=== PATIENT | male | born 1970 | race Caucasian/White ===

== ENCOUNTER → 2023-03-05 14:12 | Outpatient (BNVA) | payer OTHER, SELFPAY | PROVIDERS: Visit Provider Family Medicine | DX: M10.9 Gout, unspecified (principal); Z72.51 High risk heterosexual behavior; J45.909 Unspecified asthma, uncomplicated; G47.30 Sleep apnea, unspecified; Z12.11 Encounter for screening for malignant neoplasm of colon; Z86.39 Personal history of other endocrine, nutritional and metabolic disease | CPT/HCPCS: 80053; 80061; 84439; 84443; 84550; 85025; 85651; 86140; 86376; 87806 ==

== ENCOUNTER 2023-03-19 12:08 | Outpatient (CLI) | payer OTHER, SELFPAY ==
--- NOTE | 2023-03-19 12:30 | CT_ITS ---
WS: [id number] CT CHEST, ABDOMEN AND PELVIS NONCONTRAST. HISTORY: weight loss, crohns TECHNIQUE: Contiguous 5 mm axial imaging performed through the chest, abdomen and pelvis without IV c ontrast, oral contrast has been provided. Coronal and sagittal reformats chest. Coronal and sagittal reformats through the abdomen and pelvis. All CT scans at [facility] use at least one of thes e dose optimization techniques: automated exposure control; mA and/or kV adjustment per patient size (includes targeted exams where dose is matched to clinical indication); or iterative reconstruction. CONTRAST: None DLP: 813.61 mGy.cm COMPARISON: None available. Chest CT: No suspicious masses or calcifications. There is a very tiny pleural tag in the LEFT lower lung field measuring 3 mm. Heart size is normal. No pericardial or pleural effusions. No mediastinal or hilar adenopathy. There is minimal developing calcification in the coronary arteries. Small hiatal hernia. Abdomen CT: Mild hepatic steatosis. Normal size liver and spleen. Negative gallbladder and adrenal gl ands. Normal pancreas. Negative kidneys. No GI tract obstruction. The stomach is normal. No small bowel obstruction or wall thickening. There are few scattered distal colonic diverticula. No diverticulitis. The appendix is not definitely visua lized. No evidence for appendicitis. Ventral abdominal wall hernia contains fat only. Pelvic CT: No free fluid or adenopathy. Negative urinary bladder. Dystrophic calcifications in the so ft tissues posterior pelvis. Mild anterior wedging of T3. IMPRESSION: 1. No acute chest, abdomen or pelvic abnormalities. 2. No GI tract obstruction. 3. No adenopathy or ascites. 4. Ventral abdominal wall hernia contains fat only. 5. No renal obstruction.
== END 2023-03-19 12:09 | disposition home or self-care (01) ==
LOC: RAD 12:08
PROVIDERS: PCP Family Medicine; Visit Provider Family Medicine
DX: R63.4 Abnormal weight loss (principal); K50.90 Crohn's disease, unspecified, without complications; M10.9 Gout, unspecified
CPT/HCPCS: 71250; 74176

== ENCOUNTER 2023-05-05 15:30 | Outpatient (CLI) | payer OTHER, SELFPAY | END 2023-05-05 15:31 | disposition home or self-care (01) | LOC: SLEEP 05-06 07:56 | PROVIDERS: Visit Provider Family Medicine | DX: G47.33 Obstructive sleep apnea (adult) (pediatric) (principal) | CPT/HCPCS: G0399 ==

== ENCOUNTER → 2023-07-30 13:36 | Outpatient (BNVA) | payer OTHER, SELFPAY | PROVIDERS: PCP Family Medicine; Visit Provider Family Medicine | DX: M79.672 Pain in left foot (principal) | CPT/HCPCS: 73630 ==

== ENCOUNTER → 2023-08-04 13:52 | Outpatient (BNVA) | payer OTHER, SELFPAY | PROVIDERS: PCP Family Medicine; Visit Provider Podiatrist Foot & Ankle Surgery | DX: M79.672 Pain in left foot (principal); M10.9 Gout, unspecified | CPT/HCPCS: 73630 ==

== ENCOUNTER 2023-08-19 14:23 | Outpatient (CLI) | payer OTHER, SELFPAY | END 2023-08-19 14:24 | disposition home or self-care (01) | PROVIDERS: PCP Family Medicine; Visit Provider Surgery | DX: R63.4 Abnormal weight loss (principal) | CPT/HCPCS: 82274; 83630 ==

== ENCOUNTER 2023-08-24 06:05 | Day surgery (SDC) | payer OTHER, SELFPAY ==
--- NOTE | 2023-08-24 06:08 | W.PM.OPSFHP ---
Same Day Surgery H&P Indication for Procedure/HPI DATE OF PROCEDURE: August 24, 2023 CHIEF COMPLAINT/INDICATIONFOR SURGICAL PROCEDURE: need for screening colonoscopy PREOP DIAGNOSIS: need for screening colonoscopy PLANNED PROCEDURE: Operation Date: 08/24/23 07:15 Proposed Procedures p Colonoscopy 59147, G0121, Z12.11, K50.10, R63.4(Not Applicable) - Eliu Rogel MD Medications/Allergies* Home Medications Medication Instructions Recorded Confirmed Type colchicine 0.6 mg tablet 0.6 mg PO DAILY PRN Pain 03/05/23 08/19/23 History ipratropium bromide 21 mcg (0.03 2 spray intranasal BID 03/05/23 08/19/23 History %) nasal spray montelukast 10 mg tablet 10 mg PO DAILY PRN Allergy Symptoms 03/05/23 08/19/23 History allopurinol 100 mg tablet 200 mg PO DAILY 08/19/23 08/19/23 History diclofenac sodium 1 % topical gel 4 g topical QID PRN Pain 08/19/23 08/19/23 History (Voltaren Arthritis Pain) naproxen sodium 220 mg tablet 220 mg PO BID PRN Pain 08/19/23 08/19/23 History (Aleve) Allergies/Adverse Reactions Allergy/AdvReac Type Severity Reaction Status Date / Time Penicillins Allergy Severe ALGY-Difficulty Verified 08/11/23 14:33 Breathing Pertinent History/Comorbid Conditions* Medical History (Updated 08/14/23 @ 16:26 by Eliu Gilbert DPM) Encounter for screening for malignant neoplasm of colon Gout Asthma Seasonal allergies Crohn disease Surgical History (Updated 03/05/23 @ 13:43 by Nba Turpin MD) History of abdominal surgery History of knee surgery Family History (Updated 03/05/23 @ 13:39 by Mayra Geiger LPN) Liver disease Diabetes CAD (coronary artery disease) Hyperlipidemia Chronic kidney disease (CKD) Hypertension Denies family history of Aneurysm Autoimmune disease Psychiatric illness Bleeding disorder Lung disease Cancer Stroke Social History Smoking and tobacco/nicotine status: never used tobacco/nicotine Alcohol intake: never Substance/Drug Use: never Pertinent Exam Findings alert, oriented x 3, clear to auscultation bilaterally and regular rate & rhythm Recommendations Surgery/Procedure today Coding Level of Care Code Acute Code for Chg Fwd
[2023-08-24 06:28] VITALS: BMI 24.4
[2023-08-24 06:36] VITALS: BP 111/74; PULSE 84; RESP 18; TEMP 36.1; O2SAT 97
[2023-08-24] MEDS: sodium chloride 0.9% 1,000 ML 30 ML IV (06:41)
--- NOTE | 2023-08-24 06:47 | ANES.PREANE2 ---
Pre-Anesthetic Assessment Height/Weight: Height 1.85 m Weight 83.915 kg Temp Pulse Resp BP Pulse Ox O2 Del Method 97.0 F L 84 18 111/74 97 Room Air 08/24/23 06:36 08/24/23 06:36 08/24/23 06:36 08/24/23 06:36 08/24/23 06:36 08/24/23 06:36 Preop Diagnosis: need for screening colonoscopy Operation Date: 08/24/23 07:15 Proposed Procedures p Colonoscopy 70281, G0121, Z12.11, K50.10, R63.4(Not Applicable) - Eliu Rogel MD Was Beta Richard taken within 24 hours: N/A Was Clonidine taken within 24 hours: N/A Last intake: Intake Last Liquid Date 08/23/23 Last Liquid Time 22:00 Last Solid Date 08/22/23 Last Solid Time 18:00 Social No tobacco Exam alert, oriented x 3 and clear to auscultation bilaterally Airway Submandibular: within normal limits Cervical ROM: within normal limits Mallampati: Class I Dentition: full History/ROS No significant history except as noted Pulmonary Asthma and Sleep Apnea (Cpap) CV/HEM None reported None reported Hepatic None reported GI None reported Metabolic None reported Musc/skel foot and neck pain Neuropsych None reported Anesthetic Plan ASA status: 2 Anesthesia: MAC Risk of > 500 ml blood loss (7ml/kg in children): No Medications/Allergies Home Medications Medication Instructions Recorded Confirmed Last Taken Type colchicine 0.6 mg tablet 0.6 mg PO DAILY PRN Pain 03/05/23 08/24/23 Unknown History ipratropium bromide 21 mcg (0.03 2 spray intranasal BID 03/05/23 08/24/23 08/22/23 History %) nasal spray montelukast 10 mg tablet 10 mg PO DAILY PRN Allergy Symptoms 03/05/23 08/24/23 Unknown History CPAP 6-16cm setting #1 ea 05/18/23 08/11/23 Unknown Rx CPAP mask, tubing, supplies #1 ea 05/18/23 08/11/23 Unknown Rx budesonide-formoterol HFA 160 2 inh inhalation BID #10.2 grams 07/09/23 08/24/23 08/17/23 Rx mcg-4.5 mcg/actuation aerosol inhaler (Symbicort) albuterol 90 mcg-budesonide 80 2 inh inhalation DAILY PRN asthma 07/30/23 08/24/23 08/23/23 Rx mcg/actuation HFA aerosol inhaler #10.7 grams allopurinol 100 mg tablet 200 mg PO DAILY 08/19/23 08/24/23 08/22/23 History diclofenac sodium 1 % topical gel 4 g topical QID PRN Pain 08/19/23 08/24/23 08/22/23 History (Voltaren Arthritis Pain) naproxen sodium 220 mg tablet 220 mg PO BID PRN Pain 08/19/23 08/24/23 08/22/23 History (Aleve) Allergies Allergy/AdvReac Type Severity Reaction Status Date / Time Penicillins Allergy Severe ALGY-Difficulty Verified 08/24/23 06:26 Breathing Current Medications Generic Name Dose Route Start Last Admin Trade Name Freq PRN Reason Stop Dose Admin Sodium Chloride 1,000 mls @ 30 mls/hr 08/24/23 06:45 08/24/23 06:41 Sodium Chloride 0.9% IV 08/25/23 06:44 30 mls/hr .Q24H REBEKA Administration PFSH Anesthesia Medical History Encounter for screening for malignant neoplasm of colon Gout Asthma Seasonal allergies Crohn disease Surgical History History of abdominal surgery History of knee surgery Family History Other CAD (coronary artery disease) Chronic kidney disease (CKD) Diabetes Hyperlipidemia Hypertension Liver disease Denies family history of Aneurysm Autoimmune disease Psychiatric illness Bleeding disorder Lung disease Cancer Stroke Social History Smoking and tobacco/nicotine status: never used tobacco/nicotine Alcohol intake: never Substance/Drug Use: never Data Anesthesia Cardiac Studies: No Data to Display
[2023-08-24 07:59] VITALS: BP 84/56; PULSE 68; RESP 12; O2SAT 97
[2023-08-24 08:16] VITALS: BP 105/72; PULSE 79; RESP 14; O2SAT 99
--- NOTE | 2023-08-24 08:30 | ANE.PACU2 ---
Inpatient post-anesthesia follow up: Airway intact: Yes Vital signs: Temperature 97.0 F Pulse Rate 79 Respiratory Rate 14 Blood Pressure 105/72 Pulse Oximetry 99 Oxygen Delivery Me thod Room Air Oxygen Flow Rate Fraction of Inspir ed Oxygen Hydration adequate: Yes Nausea and vomiting: No Pain level: 1 Mental status: Baseline
== END 2023-08-24 08:30 | disposition home or self-care (01) ==
PROVIDERS: PCP Family Medicine; Visit Provider Surgery
PROC: 0DJD8ZZ Inspection of Lower Intestinal Tract, Via Natural or Artificial Opening Endoscopic (ICD-10-PCS; CPT 45378; principal; 2023-08-24 07:15)
DX: Z12.11 Encounter for screening for malignant neoplasm of colon (principal); G47.30 Sleep apnea, unspecified
CPT/HCPCS: 45380; 88305; J2704; J7030

== ENCOUNTER → 2024-06-22 08:48 | Outpatient (BNVA) | payer OTHER, SELFPAY | PROVIDERS: PCP Family Medicine; Visit Provider Family Medicine | DX: R63.4 Abnormal weight loss (principal) | CPT/HCPCS: 80053; 80061; 84439; 84443; 85025; 85651; 86140 ==

== ENCOUNTER → 2024-06-27 08:02 | Outpatient (BNVA) | payer OTHER, SELFPAY | PROVIDERS: PCP Family Medicine; Visit Provider Family Medicine | DX: R73.09 Other abnormal glucose (principal) | CPT/HCPCS: 83036 ==

== ENCOUNTER 2024-06-29 07:52 | Outpatient (CLI) | payer OTHER, SELFPAY ==
[2024-06-29 08:55] LABS: Creatinine Urine, Random 86 mg/dL (39-259); Microalbum Creatinine Ratio Ur 12 mg/dL (0-20); Microalbumin Random Urine 1 ug/dL (0-20)
== END 2024-06-29 07:53 | disposition home or self-care (01) ==
PROVIDERS: PCP Family Medicine; Visit Provider Family Medicine
DX: E11.9 Type 2 diabetes mellitus without complications (principal)
CPT/HCPCS: 36415; 82044; 84305; 86337; 86341

== ENCOUNTER → 2024-11-15 17:28 | Outpatient (BNVA) | payer OTHER, SELFPAY | PROVIDERS: PCP Family Medicine; Visit Provider Family Medicine | DX: E11.9 Type 2 diabetes mellitus without complications (principal) | CPT/HCPCS: 83036 ==

== ENCOUNTER → 2024-11-17 14:39 | Outpatient (BNVA) | payer OTHER, SELFPAY | PROVIDERS: PCP Family Medicine; Visit Provider Family Medicine | DX: E11.9 Type 2 diabetes mellitus without complications (principal); M10.9 Gout, unspecified | CPT/HCPCS: 80053; 83036; 84550 ==